=== PATIENT | female | born 1955 | race Two or more races ===

== ENCOUNTER 2018-04-13 09:33 | Emergency (ER) | payer BC, MEDICARE, OTHER ==
[~2018-04-13] VITALS: Ht 162.6 cm; Wt 63.0 kg
--- NOTE | 2018-04-13 09:50 | NUR ---
[id number] -AXNIETY ATTACK WHILE DRIVING. VSS. NAD NOTED. SAFETY AND COMFORT MEASURES PROVIDED. AWAITING FOR MD DE LEÓN. WILL MONITOR.
[2018-04-13] MEDS ORDERED: METOCLOPRAMIDE HCL 10 MG/2 ML VIAL IV ONE (10:30)
[2018-04-13] MEDS ORDERED: diphenhydrAMINE HCL 50 MG/ML VIAL IV ONE (10:30)
[2018-04-13] MEDS ORDERED: IV NS 0.9% 1,000 ML BAG IV ONE (10:30)
[2018-04-13] MEDS ORDERED: diphenhydrAMINE HCL 50 MG/ML VIAL ONE (10:41)
[2018-04-13] MEDS ORDERED: METOCLOPRAMIDE HCL 10 MG/2 ML VIAL ONE (10:41)
[2018-04-13 10:45] LABS: BASOPHILS % (AUTO) 0.5 % (0.0-2.0); EOSINOPHILS % (AUTO) 0.2 % (0.0-6.0); HEMATOCRIT 45 % (33-45); HEMOGLOBIN 15.3 g/dL (11.5-14.8); LYMPHOCYTES # (AUTO) 0.5 /CMM (0.8-4.8); LYMPHOCYTES % (AUTO) 6.4 % (20.0-44.0); MEAN CORPUSCULAR HGB CONC 34 g/dl (31.0-36.0); MEAN CORPUSCULAR VOLUME 88 fL (82-100); MONOCYTES # (AUTO) 0.2 /CMM (0.1-1.30); MONOCYTES % (AUTO) 2.1 % (2.0-12.0); NEUTROPHILS # (AUTO) 7.3 /CMM (1.8-8.9); NEUTROPHILS % (AUTO) 90.8 % (43.0-81.0); PLATELET COUNT (AUTO) 201 /CMM (150-450); RDW COEFFICIENT OF VARIATION 12.9 (11.5-15.0); RED BLOOD CELL COUNT(AUTO) 5.11 MIL/uL (4.0-5.2)
[2018-04-13 10:55] LABS: CALCIUM, SERUM 9.7 mg/dL (8.5-10.1); CARBON DIOXIDE 25 mmol/L (21-32); CHLORIDE 105 mmol/L (98-107); CREATININE 0.9 mg/dL (0.6-1.3); GLUCOSE 126 mg/dL (74-106); POTASSIUM 4.1 mmol/L (3.5-5.1); SODIUM SERUM 139 mmol/L (136-145); UREA NITROGEN, BLOOD 32 mg/dL (7-18)
[2018-04-13 11:01] LABS: ALANINE AMINOTRANSFERASE 20 U/L (12-78); ALBUMIN 4.2 g/dL (3.4-5.0); ALCOHOL, BLOOD < 3 mg/dL (0-0); ALKALINE PHOSPHATASE 85 U/L (46-116); ASPARTATE AMINOTRANSFERASE 16 U/L (15-37); BILIRUBIN,DIRECT 0.1 mg/dL (0.0-0.2); BILIRUBIN,TOTAL 0.3 mg/dL (0.2-1.0); TOTAL PROTEIN, SERUM 7.6 g/dL (6.4-8.2)
[2018-04-13 11:07] LABS: ACETAMINOPHEN 0 ug/ml (10-30); SALICYLATE 1.9 mg/dL (2.8-20.0)
--- NOTE | 2018-04-13 11:07 | NUR ---
PAGED SELENE DUNNE FOR PSYCH EVAL
--- NOTE | 2018-04-13 12:20 | NUR ---
VIBHA LEBLANC AT BS FOR EVAL.
--- NOTE | 2018-04-13 13:45 | NUR ---
Patient discharged to home in stable condition. Written and verbal after care instructions given. Patient verbalizes understanding of instruction.
[2018-04-13 13:47] VITALS: BP 128/68
== END 2018-04-13 13:49 | disposition home or self-care (01) ==
LOC: ER 09:35
DX: F31.9 Bipolar disorder, unspecified (principal); F41.9 Anxiety disorder, unspecified; I10 Essential (primary) hypertension; R51 Headache
CPT/HCPCS: 36415; 70450; 80048; 80076; 80329; 85025; 96361; 96374; 96375; 99285; A4216; A4606; G0480 ×2; J1200; J2765; J7030; Z7610